=== PATIENT | male | born 1990 | race Caucasian/White ===

== ENCOUNTER 2023-06-11 04:45 | Emergency (ER) | payer OTHER, SELFPAY ==
[2023-06-11 04:53] VITALS: BP 138/85; PULSE 99; RESP 20; TEMP 36.7; O2SAT 99; BMI 43.0
[2023-06-11] MEDS: ONDANSETRON ODT 4 MG TAB PO (05:30)
--- NOTE | 2023-06-11 05:33 | ED.GENADULT ---
HPI - General Adult General Chief complaint: Alcohol/Intoxication Stated complaint: Alcohol Withdrawal Time Seen by Provider: 06/11/23 05:11 Source: patient Mode of arrival: ambulatory History of Present Illness HPI narrative: 32-year-old male presents the emergency department for evaluation of persistent alcohol use. He reports that he does want to quit drinking. States that he has been through rehab 13 times in the past. He last started the process December 29. He inter detox at that time and eventually was discharged into a 60 day inpatient rehab facility and then to a sober living center. He reports that he was sober a total of 90 days and then began drinking again while still living at the sober living house. Once he was discharged from there, he moved to [place] to live with a couple of friends. He is currently working a nursing job locally but states that he never drinks before work. He does seem to genuinely enjoying his work and lites up when he talks about it to me. He is currently drinking 3-4 pt of rum per day. Will switch to vodka on occasion when needed. Denies any hematemesis. States that he does get some stomach irritation from drinking and will use omeprazole when he is drinking more heavily. This does seem to help. No bloody stools. Admits to significant weight gain over the last 6 months, no unexplained weight loss. Denies any pancreatitis history. Denies any seizure history. Reports over long ring anxiety that gets worse when he does not drink. Last drink was 1:00 a.m. this morning. His roommates urged him to come in for help, concerned of the medical consequences of his prolonged heavy drinking. He reports that he has family that does care about him. They have supported him through the illness in the past. He denies any other long-term medical problems besides the alcoholism and obesity. Denies any prior history of GI surgeries. He is willing to go to detox. He is concerned that he does not have medical insurance at this time. Denies any falls, trauma, injury or pain. ROS is otherwise negative times 12 systems. Related Data Home Medications Medication Instructions Recorded Confirmed No Known Home Medications 06/11/23 06/11/23 Allergies Allergy/AdvReac Type Severity Reaction Status Date / Time No Known Drug Allergies Allergy Verified 06/11/23 04:55 [facility] Medical History (Updated 03/16/24 @ 06:52 by Lisa Magana MD) Alcohol dependence ?F10.20 - Alcohol dependence, uncomplicated (ICD-10) Social History Smoking Status: Never smoker Second hand tobacco smoke exposure: No How often do you have a drink containing alcohol: 4 or more times a week How many standard drinks containing alcohol do you have on a typical day: 7 to 9 How often do you have six or more drinks on one occasion: Daily or almost daily AUDIT-C Alcohol total score: 11 Non-prescribed substance use: marijuana (any form) Exam Const: Vital Signs, click to edit/add: Vital Signs - 24 hr 06/11/23 04:53 Temperature 98.0 F Pulse Rate [Right Pulse Oximeter] 99 Respiratory Rate 20 Blood Pressure [Ri ght Upper Arm] 138/85 Pulse Oximetry 99 Oxygen Delivery Me thod Room Air Documenting provider has reviewed patient's vital signs: yes Common normals: alert Other: Malodorous, clothing dirty but friendly and cooperative. Appears well nourished and well hydrated. HENMT: Common normals: normocephalic and head/scalp atraumatic Head and scalp: normocephalic and atraumatic Face and sinus: normal facial exam Mouth: oral and palatal mucosa normal Throat: posterior oropharynx normal Eye: Common normals: conjunctivae normal General eye: normal appearance of both eyes Conjunctiva: conjunctiva(e) normal Neck & C-Spine: Common normals: full ROM and no lymphadenopathy Resp: Common normals: normal respiratory effort, no use of accessory muscles and clear to auscultation bilaterally Effort & inspection: able to speak in complete sentences Auscultation: clear to auscultation bilaterally Cardio: Common normals: regular rate, regular rhythm, S1 normal heart sound, S2 normal heart sound and no murmurs Rate: regular rate Rhythm: regular rhythm Heart sounds: S1 normal and S2 normal GI: Other: Obese. Does not seem to be ascites related. I cannot palpate the edges of the liver due to the obesity. There is no obvious tenderness or signs of varices. Extremity: Common normals: normal to inspection, normal capillary refill and no pedal edema Neuro: Common normals: moves all extremities and no focal motor deficits Sensorium/orientation: alert Speech: speech normal Gait (neuro): normal gait Motor exam: no tremor noted Psych: Appearance: unkempt Attitude: engaged Activity/motor behavior: appropriate eye contact Mood and affect: anxious Attention/concentration: attention grossly intact Memory/cognition: memory grossly intact Insight: insight good Judgement: fair Skin: Common normals: no rashes or lesions noted General skin exam: no rashes or lesions noted Course Course ED Course: Fifteen years of alcoholism with multiple failed alcohol rehab stays. Interested in stopping drinking, willing to go to detox and rehab again if appropriate. Will give Zofran and omeprazole for stomach discomfort and draw basic labs to ensure that his liver functions appropriately. Oral rehydration. Anticipate discharge to detox. Reevaluation(s) Time of Reevaluation #1: 06:51 Reevaluation #1: Inform patient of mild discrepancies in his lab work. Consistent with prolonged drinking. Alcohol of 0.19. I offered detox referral and he is willing to do this at this time. We will call for referral. Reevaluation #2: Awaiting transfer to detox, will hand over interim care to my day shift partner. Should be no additional management needed. Vital Signs Vital signs: Initial Vital Signs Temperature 98.0 F 06/11/23 04:53 Temperature Source Temporal Artery Scan 06/11/23 04:53 Pulse Rate 99 06/11/23 04:53 Respiratory Rate 20 06/11/23 04:53 Blood Pressure 138/85 06/11/23 04:53 Blood Pressure Mean 102 06/11/23 04:53 Blood Pressure Position Sitting 06/11/23 04:53 Pulse Oximetry 99 06/11/23 04:53 Oxygen Delivery Method Room Air 06/11/23 04:53 Vital Signs Temperature 98.0 F 06/11/23 04:53 Pulse Rate 99 06/11/23 04:53 Respiratory Rate 20 06/11/23 04:53 Blood Pressure 138/85 06/11/23 04:53 Pulse Oximetry 99 06/11/23 04:53 Oxygen Delivery Method Room Air 06/11/23 04:53 Temperature 98.0 F 06/11/23 04:53 Pulse Rate 99 06/11/23 04:53 Respiratory Rate 20 06/11/23 04:53 Blood Pressure 138/85 06/11/23 04:53 Pulse Oximetry 99 06/11/23 04:53 Oxygen Delivery Method Room Air 06/11/23 04:53 Medications Administered Medications: Discontinued Medications Generic Name Dose Route Start Last Admin Trade Name Mary PRN Reason Stop Dose Admin Omeprazole 20 mg 06/11/23 05:30 06/11/23 05:35 Omeprazole [address] PO 06/11/23 05:31 20 mg ONCE ONE Administration Ondansetron HCl 4 mg 06/11/23 05:30 06/11/23 05:30 Ondansetron Odt 4 Mg Tab PO 06/11/23 05:31 4 mg ONCE ONE Administration Medical Decision Making Lab Data Lab results reviewed: Yes I reviewed the patient's lab results Lab results narrative: Mild elevation of AST and ALT consistent with alcoholism. Drug screen positive for THC but no other significant abnormalities. Medically stable for discharge. Labs: Lab Results 06/11/23 06/11/23 06/11/23 Range/Units 05:12 05:36 05:47 WBC 4.37 L (4.50-11.00) K/uL RBC 5.32 (4.30-5.90) m/uL Hgb 15.2 (13.5-17.5) gm/dL Hct 44.8 (37.0-53.0) % MCV 84 (80-100) fL MCH 29 (26-34) pg MCHC 34 (32-36) gm/dL RDW Coeff of Lucas 12.7 (11.5-15.5) % Plt Count 282 (140-440) K/uL Neut % (Auto) 60.4 (42.0-72.0) % Lymph % (Auto) 29.5 (20-44) % [place] % (Auto) 4.8 (0.0-11.0) % Eos % (Auto) 3.7 (0.0-7.0) % Baso % (Auto) 0.7 (0.0-3.0) % Neut # (Auto) 2.60 (1.7-7.0) K/uL Lymph # (Auto) 1.30 (0.90-2.90) K/uL [place] # (Auto) 0.20 (0.00-0.90) K/UL Eos # (Auto) 0.20 (0.00-0.50) K/uL Baso # (Auto) 0.00 (0.00-0.30) K/uL Abs Immat Gran (auto) 0.00 (0.00-0.30) K/uL Imm/Tot Granulo (auto) 0.9 % Sodium 144 (135-149) mmol/L Potassium 4.2 (3.6-5.1) mmol/L Chloride 107 (96-114) mmol/L Carbon Dioxide 28 (20-32) mmol/L Anion Gap 9 (7-15) mEq/L BUN 14 (5-24) mg/dL Creatinine 0.8 (0.5-1.5) mg/dL Estimated Creat Clear 139.41 Estimated GFR 122 ml/min Glucose 116 H (60-115) mg/dL Calcium 9.5 (8.4-10.6) mg/dL Total Bilirubin 0.6 (0.1-1.5) mg/dL AST 56 H (12-35) U/L ALT 82 H (4-50) U/L Alkaline Phosphatase 76 (40-150) U/L Total Protein 8.4 H (6.0-8.3) g/dL Albumin 4.9 (3.3-5.0) g/dL Urine Opiates Screen Negative (Negative) Ur Oxycodone Screen Negative (Negative) Urine Methadone Screen Negative (Negative) Ur Barbiturates Screen Negative (Negative) U Tricyclic Antidepress Negative (Negative) Ur Phencyclidine Scrn Negative (Negative) Ur Amphetamines Screen Negative (Negative) U Methamphetamines Scrn Negative (Negative) U Benzodiazepines Scrn Negative (Negative) Urine Cocaine Screen Negative (Negative) U Marijuana (THC) Screen POSITIVE A (Negative) Ur Drug Screen Comment See Note Ethyl Alcohol 0.19 H (0.01-0.03) % SARS-CoV-2 Ag (Rapid) Negative (Negative) Discharge Plan Discharge Clinical Impression: Alcoholism, chronic, Alcoholic intoxication Patient Disposition: Xfer Other Condition: Stable Prescriptions: No Action No Known Home Medications Stand Alone Forms: MyHealth Info Instructions
[2023-06-11] MEDS: OMEPRAZOLE 20 MG CAPSULE DR PO (05:35)
[2023-06-11 06:00] LABS: Basophils Percent Auto 0.7 % (0.0-3.0); Eosinophils Percent Auto 3.7 % (0.0-7.0); Hematocrit 44.8 % (37.0-53.0); Hemoglobin* 15.2 gm/dL (13.5-17.5); Immature Granulocytes Pct Auto 0.9 %; Lymphocytes Percent Auto 29.5 % (20-44); Mean Corpuscular HGB Conc 34 gm/dL (32-36); Mean Corpuscular Hemoglobin 29 pg (26-34); Mean Corpuscular Volume 84 fL (80-100); Monocytes Percent Auto 4.8 % (0.0-11.0); Neutrophils Percent Auto 60.4 % (42.0-72.0); Platelet Count* 282 K/uL (140-440); RDW Coefficient of Variation % 12.7 % (11.5-15.5); Red Blood Count 5.32 m/uL (4.30-5.90); White Blood Count* 4.37 K/uL (4.50-11.00)
[2023-06-11 06:13] LABS: Albumin* 4.9 g/dL (3.3-5.0); Chloride* 107 mmol/L (96-114); Sodium* 144 mmol/L (135-149)
[2023-06-11 06:14] LABS: Potassium* 4.2 mmol/L (3.6-5.1)
[2023-06-11 06:16] LABS: Alanine Aminotransferase* 82 U/L (4-50); Alkaline Phosphatase* 76 U/L (40-150); Anion Gap 9 mEq/L (7-15); Aspartate Amino Transferase* 56 U/L (12-35); Bilirubin Total* 0.6 mg/dL (0.1-1.5); Blood Urea Nitrogen* 14 mg/dL (5-24); Carbon Dioxide* 28 mmol/L (20-32); Creatinine* 0.8 mg/dL (0.5-1.5); Est. Creatinine Clearance* 139.41; Estimated Glomerular Filt Rate 122 ml/min; Glucose* 116 mg/dL (60-115); Total Protein* 8.4 g/dL (6.0-8.3)
[2023-06-11 06:17] LABS: Calcium* 9.5 mg/dL (8.4-10.6); Ethanol* 0.19 % (0.01-0.03)
[2023-06-11 06:18] LABS: Slide Review Reflex No
[2023-06-11 06:24] LABS: Amphetamine Screen Urine Negative (Negative); Barbiturate Screen Urine Negative (Negative); Benzodiazepines Screen Urine Negative (Negative); Cannabinoid Screen Urine POSITIVE (Negative); Cocaine Screen Urine Negative (Negative); Methadone Screen Urine Negative (Negative); Methamphetamines Screen Urine Negative (Negative); Opiate Screen Urine Negative (Negative); Oxycodone Screen Urine Negative (Negative); Phencyclidine Screen Urine Negative (Negative); Tricyclic Antidepressant Urine Negative (Negative)
[2023-06-11 06:32] LABS: SARS Antigen* Negative (Negative)
== END 2023-06-11 08:35 | disposition other institution (70) ==
PROVIDERS: Emergency Provider Family Medicine
DX: F10.229 Alcohol dependence with intoxication, unspecified (principal)
CPT/HCPCS: 36415; 80053; 80306; 82077; 85025; 87426; 99283; 99284; 99285; A9270

== ENCOUNTER 2023-06-11 08:26 | Outpatient (CLI) | payer OTHER, SELFPAY | END 2023-06-11 08:27 | disposition home or self-care (01) | LOC: AMB 06-12 07:05 | PROVIDERS: Visit Provider Student in an Organized Health Care Education/Training Program | DX: F10.20 Alcohol dependence, uncomplicated (principal) | CPT/HCPCS: A0425; A0428 ==